=== PATIENT | male | born 1960 | race Caucasian/White ===

== ENCOUNTER 2019-06-13 06:57 | Emergency (ER) | payer SELFPAY ==
[~2019-06-13] VITALS: Ht 190.5 cm; Wt 118.8 kg
[~2019-06-13 06:57] MED LIST: ALPRAZOLAM0.5 MG; ARNICA120 ML; ASPIRIN EC81 MG PO; BENADRYL25 MG; DICYCLOMINE HCL20 MG PO; DILAUDID4 MG; HYDRALAZINE HCL10 MG; LANSOPRAZOLE15 MG PO; MELATONIN10 MG PO; NORCO 5-325 TA1 EACH PO; PERCOCET 5-3251 EACH PO; SIMVASTATIN5 MG PO; TRAZODONE HCL50 MG; WELLBUTRIN XL150 MG
[2019-06-13] MEDS ORDERED: BENADRYL ALLERG25 MG PO (07:09)
[2019-06-13] MEDS ORDERED: MELATONIN10 M2 PO (07:10)
[2019-06-13] MEDS ORDERED: OMEPRAZOLE20 MG PO (07:11)
[2019-06-13] MEDS ORDERED: PANTOPRAZOLE SO40 MG PO (08:30)
[2019-06-13] MEDS ORDERED: ONDANSETRON ODT8 MG PO (08:41)
--- NOTE | 2019-06-13 13:08 | EKG ---
[facility] [address] [place] [address] Signed Normal sinus rhythm Normal ECG When compared with ECG of 07-OCT-2016 13:36, Inverted T waves have replaced nonspecific T wave abnormality in Inferior leads T wave amplitude has decreased in Anterolateral leads Confirmed by YOSI OCAMPO DO ([id number]) on 06/13/2019 1:08:00 PM Electronically Signed By: YOSI OCAMPO DO 06/13/19 1308 PATIENT NAME: MANOJ SHELTON Electrocardiogram DATE OF : 64 PHYSICIAN: YOSI OCAMPO DO REPORT #: [id number] REPORT IS CONFIDENTIAL AND NOT TO BE RELEASED WITHOUT AUTHORIZATION
== END 2019-06-13 08:40 | disposition home or self-care (01) ==
LOC: ED 06:57
DX: R06.00 Dyspnea, unspecified (principal); R10.13 Epigastric pain; G62.9 Polyneuropathy, unspecified; I10 Essential (primary) hypertension; I25.2 Old myocardial infarction; Z79.899 Other long term (current) drug therapy
CPT/HCPCS: 71046; 80053; 83735; 83880; 84484; 85025; 85379; 93005; 93010; 96374; 99285-25; C9113

== ENCOUNTER 2023-03-08 07:43 | Emergency (ER) | payer OTHER ==
[~2023-03-08] VITALS: Ht 190.5 cm; Wt 118.8 kg
[~2023-03-08 07:43] MED LIST changes: +BENADRYL ALLERG25 MG PO; +MELATONIN10 M2 PO; +OMEPRAZOLE20 MG PO; +ONDANSETRON ODT8 MG PO; +PANTOPRAZOLE SO40 MG PO
[2023-03-08 12:29] VITALS: BP 169/122
--- NOTE | 2023-03-08 21:20 | EKG ---
[facility] [address] [facility] [place] [address] Signed Poor data quality, interpretation may be adversely affected Atrial fibrillation with premature ventricular or aberrantly conducted complexes Abnormal ECG No previous ECGs available Confirmed by SUDHEER ANNA MD ([id number]) on 03/08/2023 9:20:05 PM Electronically Signed By: SUDHEER ANNA MD 03/08/232119 PATIENT NAME: MANOJ SHELTON Electrocardiogram DATE OF : 64 PHYSICIAN: SUDHEER ANNA MD REPORT #: [id number] REPORT IS CONFIDENTIAL AND NOT TO BE RELEASED WITHOUT AUTHORIZATION
== END 2023-03-08 12:36 | disposition short-term general hospital (02) ==
LOC: ED 07:43
DX: I21.4 Non-ST elevation (NSTEMI) myocardial infarction (principal); I10 Essential (primary) hypertension
CPT/HCPCS: 36415; 71045; 80053; 83880; 84484; 85025; 87502; 93005; 93010; 96374; 96375; 99285-25; A9270; J1644; J1940; U0002

== ENCOUNTER 2023-04-22 17:40 | Emergency (ER) | payer OTHER ==
[~2023-04-22] VITALS: Ht 190.5 cm; Wt 133.6 kg
--- OUTSIDE RECORDS SUMMARY | ~2023-04-22 | XMS | Continuity of Care Document ---
Demographics + + + | Address | [address] | | | [place] [address] | + + + | Preferred Language | Unknown | + + + | Marital Status | | + + + | Taoist Affiliation | Unknown | + + + | Race | White | + + + | Ethnic Group | Not or | + + + Author + + + | Author | [facility] | + + + | Organization | [facility] | + + + | Address | [address] | | | [place] [address] | + + + | Phone | | + + + Care Team Providers + + + + | Care Photocomposing Machine Operator Name | Role | Phone | + + + + Unavailable | Unavailable | + + + + Unavailable | Unavailable | + + + + Allergies No information. Encounters No information. Functional Status No information. Immunizations No information. Medications + + + + | date | description | facility | + + + + | 2023-03-08 00:00 | DIPHENHYDRAMINE HCL | [facility] | + + + + | 2015-07-08 00:00 | OXYCODONE | [facility] | | | HCL/ACETAMINOPHEN | | + + + + | 2023-03-08 00:00 | DIPHENHYDRAMINE HCL | [facility] | + + + + | 2023-03-08 00:00 | MELATONIN | [facility] | + + + + | 2023-03-08 00:00 | OMEPRAZOLE | [facility] | + + + + | 2023-03-08 00:00 | ARNICA | [facility] | + + + + | 2023-03-08 00:00 | MELATONIN | [facility] | + + + + | 2023-03-08 00:00 | ALPRAZOLAM | [facility] | + + + + | 2023-03-08 00:00 | ASPIRIN | [facility] | + + + + | 2019-06-13 00:00 | ONDANSETRON | [facility] | + + + + | 2023-03-08 00:00 | SIMVASTATIN | [facility] | + + + + | 2019-06-13 00:00 | PANTOPRAZOLE SODIUM | [facility] | + + + + | 2023-03-08 00:00 | LANSOPRAZOLE | [facility] | + + + + | 2023-03-08 00:00 | TRAZODONE HCL | [facility] | + + + + | 2023-03-08 00:00 | HYDROCODONE | [facility] | | | BIT/ACETAMINOPHEN | | + + + + | 2023-03-08 00:00 | HYDROMORPHONE HCL | [facility] | + + + + | 2023-03-08 00:00 | HYDRALAZINE HCL | [facility] | + + + + | 2023-03-08 00:00 | DICYCLOMINE HCL | [facility] | + + + + | 2023-03-08 00:00 | BUPROPION HCL | [facility] | + + + + Problems + + + + | date | description | facility | + + + + | 2014-10-19 00:00 | Back pain | [facility] | + + + + | 2015-03-23 00:00 | Flank pain | [facility] | + + + + | 2015-07-08 00:00 | Chest pain of uncertain | [facility] | | | etiology | | + + + + | 2016-10-07 00:00 | Diarrhea | [facility] | + + + + | 2017-02-08 00:00 | Encounter for medical | [facility] | | | screening examination | | + + + + | 2023-03-08 00:00 | Non-ST elevation | [facility] | | | myocardial infarction | | | | (NSTEMI) | | + + + + | 2023-03-08 07:46 | Essential (primary) | [facility] | | | hypertension | | + + + + | 2023-03-08 07:46 | NON-ST ELEVATION (NSTEMI) | [facility] | | | MYOCARDIAL INFARCTION | | + + + + | 2023-03-08 07:46 | OTHER CHEST PAIN | [facility] | + + + + Procedures No information. Results/Labs +--------+--------+ + +---------+--------+ + | test | date | author | facility | value | unit | | | | | | | | | interpreta | | | | | | | | tion | +--------+--------+ + +---------+--------+ + + + | Result panel 1 | + + + + + + +---------+ + + | (unknown) | (no date) | (unknown) | [facility] | (no | (units | (unknown) | | | [facility] | value) | unknown) | [facility] | | | | + + + + +---------+ + + + + | Result panel 2 | + + + + + + +---------+ + + | (unknown) | (no date) | (unknown) | [facility] | (no | (units | (unknown) | | | | | [facility] | value) | unknown) | | | | [facility] | | | | + + + + +---------+ + + + + | Result panel 3 | + + + + + + +---------+ + + | (unknown) | (no date) | (unknown) | [facility] | (no | (units | (unknown) | | | | | [facility] | value) | unknown) | | | | [facility] | | | | + + + + +---------+ + + + + | Result panel 4 | + + + + + + +---------+ + + | (unknown) | (no date) | (unknown) | [facility] | (no | (units | (unknown) | | | | | [facility] | value) | unknown) | | | | | [facility] | | | | + + + + +---------+ + + + + | Result panel 5 | + + + + + + +---------+ + + | (unknown) | (no date) | (unknown) | [facility] | (no | (units | (unknown) | | | | | [facility] | value) | unknown) | | | | | [facility] | | | | + + + + +---------+ + + + + | Result panel 6 | + + + + + + +---------+ + + | (unknown) | (no date) | (unknown) | [facility] | (no | (units | (unknown) | | | | | [facility] | value) | unknown) | | | | [facility] | | | | + + + + +---------+ + + + + | Result panel 7 | + + + + + + +---------+ + + | (unknown) | (no date) | (unknown) | [facility] | (no | (units | (unknown) | | | | | [facility] | value) | unknown) | | | | | [facility] | | | | + + + + +---------+ + + + + | Result panel 8 | + + + + + + +---------+ + + | (unknown) | (no date) | (unknown) | [facility] | (no | (units | (unknown) | | | | | [facility] | value) | unknown) | | | | | [facility] | | | | + + + + +---------+ + + + + | Result panel 9 | + + + + + + +---------+ + + | (unknown) | (no date) | (unknown) | [facility] | (no | (units | (unknown) | | | | | [facility] | value) | unknown) | | | | | [facility] | | | | + + + + +---------+ + + + + | Result panel 10 | + + + + + + +---------+ + + | (unknown) | (no date) | (unknown) | [facility] | (no | (units | (unknown) | | | | | [facility] | value) | unknown) | | | | | [facility] | | | | + + + + +---------+ + + + + | Result panel 11 | + + + + + + +---------+ + + | (unknown) | (no date) | (unknown) | [facility] | (no | (units | (unknown) | | | | | [facility] | value) | unknown) | | | | | [facility] | | | | + + + + +---------+ + + + + | Result panel 12 | + + + + + + +---------+ + + | (unknown) | (no date) | (unknown) | [facility] | (no | (units | (unknown) | | | | | [facility] | value) | unknown) | | | | | [facility] | | | | + + + + +---------+ + + + + | Result panel 13 | + + + + + + +---------+ + + | (unknown) | (no date) | (unknown) | [facility] | (no | (units | (unknown) | | | | | [facility] | value) | unknown) | | | | | [facility] | | | | + + + + +---------+ + + + + | Result panel 14 | + + + + + + +---------+ + + | (unknown) | (no date) | (unknown) | [facility] | (no | (units | (unknown) | | | | | [facility] | value) | unknown) | | | | [facility] | | | | + + + + +---------+ + + + + | Result panel 15 | + + + + + + +---------+ + + | (unknown) | (no date) | (unknown) | [facility] | (no | (units | (unknown) | | | | [facility] | value) | unknown) | | | | [facility] | | | | + + + + +---------+ + + + + | Result panel 16 | + + + + + + +---------+ + + | (unknown) | (no date) | (unknown) | [facility] | (no | (units | (unknown) | | | | | [facility] | value) | unknown) | | | | | [facility] | | | | + + + + +---------+ + + + + | Result panel 17 | + + + + + + +---------+ + + | (unknown) | (no date) | (unknown) | [facility] | (no | (units | (unknown) | | | | | [facility] | value) | unknown) | | | | [facility] | | | | + + + + +---------+ + + + + | Result panel 18 | + + + + + + +---------+ + + | (unknown) | (no date) | (unknown) | [facility] | (no | (units | (unknown) | | | | | [facility] | value) | unknown) | | | | | [facility] | | | | + + + + +---------+ + + + + | Result panel 19 | + + + + + + +---------+ + + | (unknown) | (no date) | (unknown) | [facility] | (no | (units | (unknown) | | | | [facility] | value) | unknown) | | | | [facility] | | | | + + + + +---------+ + + + + | Result panel 20 | + + + + + + +---------+ + + | (unknown) | (no date) | (unknown) | [facility] | (no | (units | (unknown) | | | | [facility] | value) | unknown) | | | | [facility] | | | | + + + + +---------+ + + + + | Result panel 21 | + + + + + + +---------+ + + | (unknown) | (no date) | (unknown) | [facility] | (no | (units | (unknown) | | | | [facility] | value) | unknown) | | | | [facility] | | | | + + + + +---------+ + + + + | Result panel 22 | + + + + + + +---------+ + + | (unknown) | (no date) | (unknown) | [facility] | (no | (units | (unknown) | | | | [facility] | value) | unknown) | | | | [facility] | | | | + + + + +---------+ + + + + | Result panel 23 | + + + + + + +---------+ + + | (unknown) | (no date) | (unknown) | [facility] | (no | (units | (unknown) | | | | [facility] | value) | unknown) | | | | [facility] | | | | + + + + +---------+ + + + + | Result panel 24 | + + + + + + +---------+ + + | (unknown) | (no date) | (unknown) | [facility] | (no | (units | (unknown) | | | | [facility] | value) | unknown) | | | | [facility] | | | | + + + + +---------+ + + + + | Result panel 25 | + + + + + + +---------+ + + | (unknown) | (no date) | (unknown) | [facility] | (no | (units | (unknown) | | | | [facility] | value) | unknown) | | | | [facility] | | | | + + + + +---------+ + + + + | Result panel 26 | + + + + + + +---------+ + + | (unknown) | (no date) | (unknown) | [facility] | (no | (units | (unknown) | | | | [facility] | value) | unknown) | | | | [facility] | | | | + + + + +---------+ + + + + | Result panel 27 | + + + + + + +---------+ + + | (unknown) | (no date) | (unknown) | [facility] | (no | (units | (unknown) | | | | [facility] | value) | unknown) | | | | [facility] | | | | + + + + +---------+ + + + + | Result panel 28 | + + + + + + +---------+ + + | (unknown) | (no date) | (unknown) | [facility] | (no | (units | (unknown) | | | | [facility] | value) | unknown) | | | [facility] | | | | + + + + +---------+ + + + + | Result panel 29 | + + + + + + +---------+ + + | (unknown) | (no date) | (unknown) | [facility] | (no | (units | (unknown) | | | | [facility] value) | [facility]) | | | [facility] | | | | + + + + +---------+ + + + + | Result panel 30 | + + + + + + +---------+ + + | (unknown) | (no date) | (unknown) | [facility] | (no | (units | (unknown) | | | | [facility] value) | [facility]) | | | [facility] | | | | + + + + +---------+ + + + + | Result panel 31 | + + + + + + +---------+ + + | (unknown) | (no date) | (unknown) | [facility] | (no | (units | (unknown) | | | | [facility] | value) | [facility]) | | | | [facility] | | | | + + + + +---------+ + + + + | Result panel 32 | + + + + + + +---------+ + + | (unknown) | (no date) | (unknown) | [facility] | (no | (units | (unknown) | | | | [facility] | value) | [facility]) | | | | [facility] | | | | + + + + +---------+ + + + + | Result panel 33 | + + + + + + +---------+ + + | (unknown) | (no date) | (unknown) | [facility] | (no | (units | (unknown) | | | | [facility] | value) | [facility]) | | | | [facility] | | | | + + + + +---------+ + + + + | Result panel 34 | + + + + + + +---------+ + + | (unknown) | (no date) | (unknown) | [facility] | (no | (units | (unknown) | | | | [facility] | value) | [facility]) | | | | [facility] | | | | + + + + +---------+ + + + + | Result panel 35 | + + + + + + +---------+ + + | (unknown) | (no date) | (unknown) | [facility] | (no | (units | (unknown) | | | | [facility] | value) | [facility]) | | | | [facility] | | | | + + + + +---------+ + + + + | Result panel 36 | + + + + + + +---------+ + + | (unknown) | (no date) | (unknown) | [facility] | (no | (units | (unknown) | | | | [facility] | value) | [facility]) | | | | [facility] | | | | + + + + +---------+ + + + + | Result panel 37 | + + + + + + +---------+ + + | (unknown) | (no date) | (unknown) | [facility] | (no | (units | (unknown) | | | | [facility] | value) | unknown) | | | | [facility] | | | | + + + + +---------+ + + + + | Result panel 38 | + + + + + + +---------+ + + | (unknown) | (no date) | (unknown) | [facility] | (no | (units | (unknown) | | | | [facility] value) | [facility]) | | [facility] | | | | + + + + +---------+ + + Social History No information. Vital Signs + + + +---------+ | date | measurement | value | units | + + + +---------+ | 2023-03-08 00:00 | BMI | 32.7 | kg/m2 | + + + +---------+ | 2023-03-08 00:00 | BP_diastolic | 122 | mmHg | + + + +---------+ | 2023-03-08 00:00 | BP_systolic | 169 | mmHg | + + + +---------+ | 2023-03-08 00:00 | heart_rate | 53 | /min | + + + +---------+ | 2023-03-08 00:00 | height_metric | 190.5 | cm | + + + +---------+ | 2023-03-08 00:00 | height_standard | 75 | in | + + + +---------+ | 2023-03-08 00:00 | o2_saturation | 100 | % | + + + +---------+ | 2023-03-08 00:00 | respiration_rate | 18 | /min | + + + +---------+ | 2023-03-08 00:00 | temperature_metric | 36.89 | C | | | | | | + + + +---------+ | 2023-03-08 00:00 | | 98.4 | F | | | temperature_standar | | | | | d | | | + + + +---------+ | 2023-03-08 00:00 | weight_metric | 118.84 | kg | + + + +---------+ | 2023-03-08 00:00 | weight_standard | 262 | lb | + + + +---------+"
--- OUTSIDE RECORDS SUMMARY | ~2023-04-22 | XMS | Continuity of Care Document ---
Demographics + + + | Address | [address] | | | [place] [address] | + + + | Preferred Language | Unknown | + + + | Marital Status | | + + + | Anglican Affiliation | Unknown | + + + | Race | White | + + + | Ethnic Group | Not or | + + + Author + + + | Author | [facility] | + + + | Organization | [facility] | + + + | Address | [address] | | | [place] [address] | + + + | Phone | | + + + Care Team Providers + + + + | Care Field Logistics Coordinator Name | Role | Phone | + + + + Unavailable | Unavailable | + + + + Unavailable | Unavailable | + + + + Allergies No information. Encounters No information. Functional Status No information. Immunizations No information. Medications + + + + | date | description | facility | + + + + | 2023-03-08 00:00 | DIPHENHYDRAMINE HCL | [facility] | + + + + | 2015-07-08 00:00 | OXYCODONE | [facility] | | | HCL/ACETAMINOPHEN | | + + + + | 2023-03-08 00:00 | DIPHENHYDRAMINE HCL | [facility] | + + + + | 2023-03-08 00:00 | MELATONIN | [facility] | + + + + | 2023-03-08 00:00 | OMEPRAZOLE | [facility] | + + + + | 2023-03-08 00:00 | ARNICA | [facility] | + + + + | 2023-03-08 00:00 | MELATONIN | [facility] | + + + + | 2023-03-08 00:00 | ALPRAZOLAM | [facility] | + + + + | 2023-03-08 00:00 | ASPIRIN | [facility] | + + + + | 2019-06-13 00:00 | ONDANSETRON | [facility] | + + + + | 2023-03-08 00:00 | SIMVASTATIN | [facility] | + + + + | 2019-06-13 00:00 | PANTOPRAZOLE SODIUM | [facility] | + + + + | 2023-03-08 00:00 | LANSOPRAZOLE | [facility] | + + + + | 2023-03-08 00:00 | TRAZODONE HCL | [facility] | + + + + | 2023-03-08 00:00 | HYDROCODONE | [facility] | | | BIT/ACETAMINOPHEN | | + + + + | 2023-03-08 00:00 | HYDROMORPHONE HCL | [facility] | + + + + | 2023-03-08 00:00 | HYDRALAZINE HCL | [facility] | + + + + | 2023-03-08 00:00 | DICYCLOMINE HCL | [facility] | + + + + | 2023-03-08 00:00 | BUPROPION HCL | [facility] | + + + + Problems + + + + | date | description | facility | + + + + | 2014-10-19 00:00 | Back pain | [facility] | + + + + | 2015-03-23 00:00 | Flank pain | [facility] | + + + + | 2015-07-08 00:00 | Chest pain of uncertain | [facility] | | | etiology | | + + + + | 2016-10-07 00:00 | Diarrhea | [facility] | + + + + | 2017-02-08 00:00 | Encounter for medical | [facility] | | | screening examination | | + + + + | 2023-03-08 00:00 | Non-ST elevation | [facility] | | | myocardial infarction | [...]
[2023-04-22] MEDS ORDERED: ATORVASTATIN CA20 MG PO (17:49)
[2023-04-22] MEDS ORDERED: FUROSEMIDE40 MG PO (17:50)
[2023-04-22] MEDS ORDERED: ASPIRIN81 MG PO (17:50)
[2023-04-22] MEDS ORDERED: POTASSIUM CHLO10 ME1 PO (17:50)
[2023-04-22] MEDS ORDERED: LISINOPRIL2.5 MG PO (17:50)
[2023-04-22] MEDS ORDERED: NITROGLYCERIN0.4 MG SL (17:51)
[2023-04-22] MEDS ORDERED: AMOX TR-K CLV1 EAC1 PO (19:31)
[2023-04-22 20:00] VITALS: BP 139/80
== END 2023-04-22 20:04 | disposition home or self-care (01) ==
LOC: ED 17:40
DX: K57.32 Diverticulitis of large intestine without perforation or abscess without bleeding (principal); I25.2 Old myocardial infarction; I11.0 Hypertensive heart disease with heart failure; I50.9 Heart failure, unspecified; Z79.82 Long term (current) use of aspirin; Z79.899 Other long term (current) drug therapy
CPT/HCPCS: 36415; 74177; 80053; 85025; 87045; 87046; 87493; 99284 25; A9270; J1170

== ENCOUNTER 2023-12-10 15:23 | Emergency (ER) | payer BC ==
[~2023-12-10] VITALS: Ht 190.5 cm; Wt 133.6 kg
[~2023-12-10 15:23] MED LIST changes: +AMOX TR-K CLV1 EAC1 PO; +ASPIRIN81 MG PO; +ATORVASTATIN CA20 MG PO; +FUROSEMIDE40 MG PO; +LISINOPRIL2.5 MG PO; +NITROGLYCERIN0.4 MG SL; +POTASSIUM CHLO10 ME1 PO
[2023-12-10 15:46] LABS: BASOPHILS 1.1 % (0-2); EOSINOPHILS 3.7 % (0-6); HEMATOCRIT 38.5 % (35.0-50.0); LYMPHOCYTES 29.4 % (24-44); MCH 30.9 (27-36); MCHC 33.8 g/dl (30-36); MCV 91.3 fl (81-99); MONOCYTES 10.2 % (0-12); NEUTROPHILS 55.6 % (39-80); PLATELET COUNT 235 K/uL (140-440); RBC 4.22 M/ul (4.3-5.7); RDW 12.9 (10.5-15.0)
[2023-12-10 16:00] LABS: ALBUMIN 3.3 g/dL (3.4-5.0); ALBUMIN/GLOBULIN RATIO 0.79 (1.1-2.4); BILIRUBIN, TOTAL 0.3 ng/dL (0.2-1.0); BUN/CREATININE RATIO 16.29 (6.0-28.6); CALCIUM 8.8 mg/dL (8.5-10.1); CREATININE, SERUM 1.35 mg/dL (0.70-1.30); PROTEIN, TOTAL 7.5 g/dL (6.4-8.2)
[2023-12-10] MEDS ORDERED: HYDROCODONE/ACETA 5/325 TAB PO ONE (17:00)
[2023-12-10] MEDS ORDERED: HYDROCODON-ACE1 EA11 PO (17:23)
[2023-12-10 17:30] VITALS: BP 144/75
== END 2023-12-10 17:30 | disposition home or self-care (01) ==
LOC: ED 15:23
PROVIDERS: Emergency Medicine
DX: S20.212A Contusion of left front wall of thorax, initial encounter (principal); W17.89XA Other fall from one level to another, initial encounter; I11.0 Hypertensive heart disease with heart failure; I50.9 Heart failure, unspecified; I25.2 Old myocardial infarction; Z79.899 Other long term (current) drug therapy; Z79.82 Long term (current) use of aspirin
CPT/HCPCS: 36415; 70450; 71260; 72125; 72131; 80053; 85025; Q9967

== ENCOUNTER 2024-10-11 16:58 | Emergency (ER) | payer OTHER ==
[~2024-10-11] VITALS: Ht 190.5 cm; Wt 150.9 kg
[~2024-10-11 16:58] MED LIST changes: +HYDROCODON-ACE1 EA11 PO
[2024-10-11 17:15] LABS: BASOPHILS 0.8 % (0-2); EOSINOPHILS 3.9 % (0-6); HEMATOCRIT 41.2 % (35.0-50.0); HEMOGLOBIN 14.2 g/dL (12.0-18.0); LYMPHOCYTES 20.4 % (24-44); MCH 32.9 (27-36); MCHC 34.5 g/dl (30-36); MCV 95.3 fl (81-99); MONOCYTES 7.8 % (0-12); NEUTROPHILS 67.1 % (39-80); PLATELET COUNT 235 K/uL (140-440); RBC 4.32 M/ul (4.3-5.7); RDW 14.6 (10.5-15.0)
[2024-10-11 17:27] LABS: INR 1.04 (0.80-1.30); PROTIME 12.9 Sec (11.2-14.2)
[2024-10-11] MEDS ORDERED: ENTRESTO 24 MG1 EACH PO (17:31)
[2024-10-11 17:32] LABS: ALBUMIN 3.3 g/dL (3.4-5.0); ALBUMIN/GLOBULIN RATIO 0.79 (1.1-2.4); ANION GAP 12.8 (7-21); BILIRUBIN, TOTAL 0.5 ng/dL (0.2-1.0); BUN/CREATININE RATIO 12.32 (6.0-28.6); CALCIUM 8.8 mg/dL (8.5-10.1); CREATININE, SERUM 1.46 mg/dL (0.70-1.30); MAGNESIUM 2.1 mg/dL (1.8-2.4); POTASSIUM 4.8 mmol/L (3.5-5.1); PROTEIN, TOTAL 7.5 g/dL (6.4-8.2)
[2024-10-11] MEDS ORDERED: ASPIRIN 325 MG TAB PO ONE (17:45)
[2024-10-11] MEDS ORDERED: NITROGLYCERIN 0.4 MG/HR 1 EA TDSY TD ONE (17:45)
[2024-10-11] MEDS ORDERED: AMITRIPTYLINE H25 MG PO (17:49)
[2024-10-11] MEDS ORDERED: ELIQUIS5 MG PO (17:49)
[2024-10-11] MEDS ORDERED: FARXIGA10 MG PO (17:49)
[2024-10-11] MEDS ORDERED: DULOXETINE HCL20 MG PO (17:50)
[2024-10-11] MEDS ORDERED: METOPROLOL SUCC25 MG PO (17:50)
[2024-10-11] MEDS ORDERED: METFORMIN HCL500 MG PO (17:50)
[2024-10-11] MEDS ORDERED: SPIRONOLACTONE25 MG PO (17:51)
[2024-10-11] MEDS ORDERED: HEPARIN SOD,PORK IN 0.45% NACL 500 ML IV SCH (18:30)
[2024-10-11] MEDS ORDERED: HEParin SOD (PORCINE) 5,000 UNIT/ML VIAL IV ONE (18:30)
[2024-10-12 00:25] VITALS: BP 114/75
--- NOTE | 2024-10-15 20:23 | EKG ---
[facility] [address] [place] [address] Signed Sinus bradycardia with 1st degree AV block Low voltage QRS Incomplete left bundle branch block Nonspecific T wave abnormality Abnormal ECG When compared with ECG of 08-MAR-2023 07:47, Sinus rhythm has replaced Atrial fibrillation Incomplete left bundle branch block is now present Confirmed by Pratibha Tripp DO ([id number]) on 10/15/2024 8:23:36 PM Electronically Signed By: PRATIBHA TRIPP DO 10/15/242022 PATIENT NAME: MANOJ SHELTON Electrocardiogram DATE OF : 64 PHYSICIAN: PRATIBHA TRIPP DO REPORT #: [id number] REPORT IS CONFIDENTIAL AND NOT TO BE RELEASED WITHOUT AUTHORIZATION
== END 2024-10-12 00:25 | disposition short-term general hospital (02) ==
LOC: ED 16:58
PROVIDERS: Emergency Medicine
DX: I21.4 Non-ST elevation (NSTEMI) myocardial infarction (principal); I13.0 Hypertensive heart and chronic kidney disease with heart failure and stage 1 through stage 4 chronic kidney disease, or unspecified chronic kidney disease; N18.9 Chronic kidney disease, unspecified; I50.9 Heart failure, unspecified; I25.2 Old myocardial infarction; K21.9 Gastro-esophageal reflux disease without esophagitis; I48.91 Unspecified atrial fibrillation; Z79.01 Long term (current) use of anticoagulants; Z79.84 Long term (current) use of oral hypoglycemic drugs; Z79.899 Other long term (current) drug therapy
CPT/HCPCS: 36415; 71045; 80053; 83735; 83880; 84484; 85025; 85379; 85610; 93005; 93010; 96374; 99285-25; J1644

== ENCOUNTER 2025-08-20 13:05 | Emergency (ER) | payer BC ==
[~2025-08-20] VITALS: Ht 190.5 cm; Wt 167.5 kg
[~2025-08-20 13:05] MED LIST changes: +AMITRIPTYLINE H25 MG PO; +DULOXETINE HCL20 MG PO; +ELIQUIS5 MG PO; +ENTRESTO 24 MG1 EACH PO; +FARXIGA10 MG PO; +METFORMIN HCL500 MG PO; +METOPROLOL SUCC25 MG PO; +SPIRONOLACTONE25 MG PO
[2025-08-20 13:22] LABS: BASOPHILS 1.1 % (0.2-1.2); EOSINOPHILS 3.6 % (0.8-7.0); LYMPHOCYTES 28.8 % (21.8-53.1); MCH 30.5 PG (25.7-32.2); MCHC 32.7 g/dL (32.3-36.5); MCV 93.3 fL (79.0-92.2); MONOCYTES 9.0 % (5.3-12.2); NEUTROPHILS 57.1 % (34.0-67.9); RBC 4.33 M/uL (4.63-6.08)
[2025-08-20] MEDS ORDERED: ISOSORBIDE DINI30 MG (13:34)
[2025-08-20 13:40] LABS: ALT (SGPT) 22.0 U/L (14-59); AST (SGOT) 15.0 U/L (15-37); GLOMERULAR FILTRATION RATE,EST 55.0 mL/min (>60); PROTEIN, TOTAL 6.9 g/dL (6.4-8.2); UREA NITROGEN 17.0 mg/dL (7-18)
[2025-08-20] MEDS ORDERED: ASPIRIN 81 MG CHEW PO ONE (14:00)
[2025-08-20] MEDS ORDERED: METOPROLOL SUCC50 MG PO (16:27)
[2025-08-20 16:51] VITALS: BP 115/86
--- NOTE | 2025-08-21 22:07 | EKG ---
[facility] [address] [place] [address] Signed Atrial-paced rhythm with prolonged AV conduction Left axis deviation Low voltage QRS Abnormal ECG When compared with ECG of 11-OCT-2024 17:04, Electronic atrial pacemaker has replaced Sinus rhythm Vent. rate has increased BY 26 BPM Incomplete left bundle branch block is no longer present Confirmed by Megan Stratton MD () on 08/21/2025 10:06:37 PM Electronically Signed By: MEGAN STRATTON MD 08/21/25 2207 PATIENT NAME: CATMANOJ KARUNA Electrocardiogram DATE OF : 64 PHYSICIAN: MEGAN STRATTON MD REPORT #: [id number] REPORT IS CONFIDENTIAL AND NOT TO BE RELEASED WITHOUT AUTHORIZATION
== END 2025-08-20 16:53 | disposition home or self-care (01) ==
LOC: ED 13:05
PROVIDERS: Emergency Medicine
DX: I95.9 Hypotension, unspecified (principal); R53.1 Weakness; I13.0 Hypertensive heart and chronic kidney disease with heart failure and stage 1 through stage 4 chronic kidney disease, or unspecified chronic kidney disease; N18.9 Chronic kidney disease, unspecified; I50.9 Heart failure, unspecified; G47.30 Sleep apnea, unspecified; R73.03 Prediabetes; Z79.01 Long term (current) use of anticoagulants; Z79.899 Other long term (current) drug therapy
CPT/HCPCS: 36415; 71045; 80053; 83735; 84484; 85025; 93005; 93010; 99285-25; A9270